=== PATIENT | female | born 1980 | race Caucasian/White ===

== ENCOUNTER 2017-04-05 07:39 | Inpatient (IN) | payer MEDICAID, OTHER ==
[~2017-04-05] VITALS: Ht 162.6 cm; Wt 77.1 kg
[2017-04-05] MEDS ORDERED: ONDANSETRON HCL 4MG/2ML VIAL IV STA (08:48)
[2017-04-05] MEDS ORDERED: SODIUM CHLORIDE 0.9% 1,000 ML IV ONE (08:48)
[2017-04-05] MEDS ORDERED: KETOROLAC 30MG/ML VIAL IV STA (08:48)
[2017-04-05 09:22] LABS: BASOPHILS % 0.3 % (0.0-2.0); EOSINOPHILS % 0.1 % (0.0-5.0); HEMATOCRIT. 40.3 % (36.0-48.0); HEMOGLOBIN. 13.6 g/dL (12.0-16.0); LYMPHOCYTES % 9.5 % (20.0-50.0); MEAN CORPUSCULAR HEMOGLOBIN 31.3 pg (28.0-32.0); MEAN CORPUSCULAR VOLUME 92.6 fL (81.0-99.0); NEUTROPHILS % 87.1 % (40.0-76.0); PLATELET 160 x1000/uL (130-400); RED BLOOD CELL COUNT 4.35 mill/uL (4.2-5.4); RED CELL DISTRIBUTION WIDTH 13.6 % (11.6-14.6)
[2017-04-05 09:28] LABS: PROTHROMBIN TIME 10.4 sec (9.4-11.6)
[2017-04-05 09:35] LABS: CHLORIDE 105 mEq/L (98-107)
[2017-04-05 09:43] LABS: CARBON DIOXIDE 26 mEq/L (21-32)
[2017-04-05 09:46] LABS: HCG SCREEN NEGATIVE
[2017-04-05 10:16] LABS: CLARITY URINE TURBID (CLEAR); COLOR URINE YELLOW (YELLOW); GLUCOSE URINE NEGATIVE (NEGATIVE); KETONES URINE TRACE (NEGATIVE); LEUKOCYTE ESTERASE URINE 1+ (NEGATIVE); NITRITE URINE NEGATIVE (NEGATIVE); OCCULT BLOOD URINE 2+ (NEGATIVE); PH URINE 5.5 (4.5-8.0); PROTEIN URINE TRACE (NEGATIVE); SPECIFIC GRAVITY URINE 1.029 (1.005-1.030); UROBILINOGEN URINE 0.2 E.U./dL (0.2-1.0)
[2017-04-05] MEDS ORDERED: CEFTRIAXONE 1 G PREMIX 50 ML IV ONE (14:30)
[2017-04-05] MEDS ORDERED: HYDROCODONE/ACETAMINOPHEN 5/325MG TABLET PO PRN (17:30)
[2017-04-05] MEDS ORDERED: MAGNESIUM/ALUMINUM HYDROXIDE/SIMETHICONE 30ML UDC PO PRN (17:30)
[2017-04-05] MEDS ORDERED: ONDANSETRON HCL 4MG/2ML VIAL IV PRN (17:30)
[2017-04-05] MEDS ORDERED: ACETAMINOPHEN 325MG TABLET PO PRN (17:30)
[2017-04-05] MEDS ORDERED: KETOROLAC 30MG/ML VIAL IV PRN (17:30)
[2017-04-05] MEDS ORDERED: IPRATROPIUM/ALBUTEROL 0.5-3(2.5)MG/3ML NEB INH PRN (17:30)
[2017-04-05 18:00] VITALS: BP 132/84
[2017-04-05] MEDS ORDERED: ENOXAPARIN 40MG/0.4ML SYR SUBCUT SCH (18:30)
[2017-04-05] MEDS: TAMSULOSIN HCL 0.4MG SR CAPSULE PO SCH (19:00)
[2017-04-05] MEDS: SODIUM CHLORIDE 0.9% 1,000 ML IV SCH (19:01)
[2017-04-05 20:00] VITALS: BP 108/60
[2017-04-05 20:11] LABS: CARBON DIOXIDE 24 mEq/L (21-32); CHLORIDE 107 mEq/L (98-107)
[2017-04-06] VITALS: BP 90/58
[2017-04-06 04:00] VITALS: BP 96/51
[2017-04-06] MEDS: SODIUM CHLORIDE 0.9% 1,000 ML IV SCH ×2 (04:14→14:27)
[2017-04-06 07:40] LABS: BASOPHILS % 0.6 % (0.0-2.0); EOSINOPHILS % 1.5 % (0.0-5.0); HEMATOCRIT. 34.9 % (36.0-48.0); HEMOGLOBIN. 11.8 g/dL (12.0-16.0); MEAN CORPUSCULAR HEMOGLOBIN 31.3 pg (28.0-32.0); MEAN CORPUSCULAR VOLUME 92.3 fL (81.0-99.0); MEAN PLATELET VOLUME 9.8 fl (7.4-10.4); MONOCYTES % 6.8 % (2.0-8.0); NEUTROPHILS % 47.1 % (40.0-76.0); PLATELET 131 x1000/uL (130-400); RED BLOOD CELL COUNT 3.78 mill/uL (4.2-5.4); RED CELL DISTRIBUTION WIDTH 13.6 % (11.6-14.6)
[2017-04-06 08:00] VITALS: BP 97/54
[2017-04-06] MEDS: TAMSULOSIN HCL 0.4MG SR CAPSULE PO SCH (08:39)
[2017-04-06 12:00] VITALS: BP 101/66
[2017-04-06] MEDS ORDERED: CEFTRIAXONE 1 G PREMIX 50 ML IV SCH (14:00)
[2017-04-06 15:44] LABS: CLARITY URINE CLOUDY (CLEAR); COLOR URINE YELLOW (YELLOW); GLUCOSE URINE NEGATIVE (NEGATIVE); KETONES URINE NEGATIVE (NEGATIVE); LEUKOCYTE ESTERASE URINE TRACE (NEGATIVE); NITRITE URINE NEGATIVE (NEGATIVE); OCCULT BLOOD URINE 2+ (NEGATIVE); PH URINE 5.5 (4.5-8.0); PROTEIN URINE TRACE (NEGATIVE); SPECIFIC GRAVITY URINE 1.021 (1.005-1.030); UROBILINOGEN URINE 0.2 E.U./dL (0.2-1.0)
[2017-04-06 16:00] VITALS: BP 106/76
[2017-04-06 16:00] LABS: *AMPHETAMINES SCREEN URINE NEGATIVE (NEGATIVE); *BARBITURATES SCREEN URINE NEGATIVE (NEGATIVE); *BENZODIAZEPINES SCREEN URINE NEGATIVE (NEGATIVE); *COCAINE SCREEN URINE NEGATIVE (NEGATIVE); CANNABINOID URINE SCREEN NEGATIVE (NEGATIVE); METHADONE URINE SCREEN NEGATIVE (NEGATIVE); PHENCYCLIDINE URINE SCREEN NEGATIVE (NEGATIVE)
[2017-04-06 16:04] LABS: OPIATES URINE SCREEN PRESUMTIVE POSITIVE (NEGATIVE)
[2017-04-06 16:50] VITALS: BP 106/76
== END 2017-04-06 17:58 | disposition home or self-care (01) | DRG 465 ==
LOC: ER 10:23 → 6EST 14:50 → ENRESERV 15:52
PROVIDERS: ADMIT Internal Medicine; ATTEND Internal Medicine
DX: N13.2 Hydronephrosis with renal and ureteral calculous obstruction (principal); N39.0 Urinary tract infection, site not specified; F17.210 Nicotine dependence, cigarettes, uncomplicated; Z90.49 Acquired absence of other specified parts of digestive tract; R31.9 Hematuria, unspecified
CPT/HCPCS: 36415; 74176; 76770; 80048; 80053; 80061; 80305; 81001; 81025; 83690; 84703; 85025; 85610; 87086; 96361; 96365; 96375; 99285; J0696; J1650; J1885; J2405; J7030

== ENCOUNTER 2017-07-20 08:33 | Emergency (ER) | payer SELFPAY ==
[~2017-07-20] VITALS: Ht 157.5 cm; Wt 68.0 kg
[2017-07-20 10:51] VITALS: BP 133/91
== END 2017-07-20 11:02 | disposition home or self-care (01) ==
LOC: ER 08:54
DX: G56.01 Carpal tunnel syndrome, right upper limb (principal); F17.210 Nicotine dependence, cigarettes, uncomplicated; Z90.49 Acquired absence of other specified parts of digestive tract
CPT/HCPCS: 99282